=== PATIENT | male | born 1995 | race African-American/Black ===

== ENCOUNTER 2018-09-08 20:51 | Emergency (ER) | payer OTHER, SELFPAY ==
[2018-09-08] MEDS ORDERED: Diazepam 5 MG TAB ONE (21:39)
[2018-09-08] MEDS ORDERED: Ketorolac Tromethamine 60 MG/2 ML VIAL ONE (21:39)
== END 2018-09-08 22:30 | disposition home or self-care (01) ==
LOC: ERS 20:51
DX: M62.838 Other muscle spasm (principal)
CPT/HCPCS: 96372; J1885

== ENCOUNTER 2019-09-19 09:16 | Emergency (ER) | payer SELFPAY | END 2019-09-19 10:58 | disposition home or self-care (01) | LOC: ERS 09:16 | DX: R42 Dizziness and giddiness (principal) | CPT/HCPCS: 99283 ==